=== PATIENT | female | born 1980 | race Caucasian/White ===

== ENCOUNTER 2019-11-15 12:45 | Outpatient (CLI) | payer OTHER ==
[~2019-11-15] VITALS: Ht 182.9 cm; Wt 93.0 kg
--- NOTE | 2019-11-15 12:40 | NUR ---
PT'S SKIN FELLS WARMTH. TEMPERATURE CHECKED X3. 99.8-- 99.4---98.9, Addendum: 11/15/19 at 1351 by TRISTA SPANGLER Amended: Links added.
[2019-11-15] MEDS ORDERED: OMEPRAZOLE20 M2 ORAL (13:46)
[2019-11-15] MEDS ORDERED: ESTRACE1 MG ORAL (13:46)
[2019-11-15 13:49] VITALS: BP 138/87
--- NOTE | 2019-11-15 18:00 | Consultation ---
DATE OF CONSULTATION: 11/15/2019 CONSULTING PHYSICIAN: Rico Cruz MD. CHIEF COMPLAINT: Abdominal pain, GERD, diarrhea. HISTORY OF PRESENT ILLNESS: This is a 39-year-old female who has been having diarrhea on and off for about 2 months, low-grade fever, some shortness of breath after eating, currently on omeprazole 20 mg a day with some improvement, so she is here for followup. PAST MEDICAL HISTORY: Hypercholesterolemia. PAST SURGICAL HISTORY: Vaginoplasty and hernia repair. MEDICATIONS: Currently on estradiol and omeprazole. FAMILY HISTORY: Mother had skin cancer. SOCIAL HISTORY: The patient denies any tobacco, alcohol, or IV drug abuse. ALLERGIES: No known drug allergies. REVIEW OF SYSTEMS: Positive for GERD symptoms, nausea after eating, some shortness of breath after eating, and on-and-off diarrhea. PHYSICAL EXAMINATION: VITAL SIGNS: Temperature is 99.8, blood pressure 130/87, pulse is 90, respirations 20. HEENT: Normocephalic and atraumatic. Sclerae anicteric. NECK: Supple. No evidence of obvious lymphadenopathy. CARDIOVASCULAR: Regular rhythm. Plus S1, S2. LUNGS: Clear to auscultation bilaterally. ABDOMEN: Positive bowel sounds. Soft and nontender. No rebound. No guarding. No peritoneal sign. EXTREMITIES: No cyanosis. No clubbing. No edema. ASSESSMENT AND PLAN: This is a 39-year-old female with chronic GERD signs and symptoms suspicious for COVID given the shortness of breath, low-grade fever, diarrhea on and off. The patient had a pending COVID test done 2 days ago; results are pending. We gave her the prescription for omeprazole, increase the dose from 20 to 40 and add baclofen at bedtime 10 mg. The patient was told to come back after the COVID test is back, so we can possibly schedule for an endoscopy. Meanwhile, the patient was given prescription for stool for O and P. Rico Cruz M.D. DR: Monica JOB#: [id number] CC:
== END 2019-11-15 14:47 | disposition home or self-care (01) ==
LOC: PAN 12:45
DX: R10.9 Unspecified abdominal pain (principal); K21.9 Gastro-esophageal reflux disease without esophagitis; R19.7 Diarrhea, unspecified; R50.9 Fever, unspecified; R06.02 Shortness of breath; E78.00 Pure hypercholesterolemia, unspecified; Z79.899 Other long term (current) drug therapy
CPT/HCPCS: G0463